=== PATIENT | male | born 1990 | race Caucasian/White ===

== ENCOUNTER 2018-04-26 21:39 | Emergency (ER) | payer SELFPAY ==
--- NOTE | 2018-04-26 21:53 | ED Physician Documentation ---
General Adult - HISTORIAN Historian: patient - HPI Stated Complaint: runny nose and fever 100 Chief Complaint: General Adult Onset: hours (6) Timing: still present Severity: mild Further Comments: yes (He states he started early this am with a runny nose and fever of 100. He did take Ibuprofen for headache. He has no cough or other complaints. He denies any sick contacts) Last known Well Code/Unknown Code: Unknown - ROS CONST: fever, recent illness EYES/ENT: none MS/SKIN/LYMPH: none NEURO/PSYCH: headache - PAST HX Past History: none Immunizations: UTD Allergies/Adverse Reactions: Allergies Allergy/AdvReac Type Severity Reaction Status Date / Time No Known Allergies Allergy Verified 04/26/18 21:55 Home Medications: Ambulatory Orders Medication Instructions Recorded Cetirizine HCl [Zyrtec] 10 mg PO DAILY 04/26/18 - SOCIAL HX Smoking History: non-smoker Alcohol Use: none Drug Use: none - FAMILY HX Family History: No - REVIEWED ASSESSMENTS Nursing Assessment Reviewed: Yes Vitals Reviewed: Yes General Adult Physical Exam - PHYSICAL EXAM GENERAL APPEARANCE: no distress EENT: eye inspection normal, ENT inspection normal, pharynx normal, no signs of dehydration, CHRIS NECK: normal inspection RESPIRATORY: no resp distress, chest non-tender, breath sounds normal CVS: reg rate & rhythm, heart sounds normal ABDOMEN: soft, normal bowel sounds, no distension BACK: normal inspection, no CVA tenderness SKIN: warm/dry, normal color EXTREMITIES: non-tender NEURO: oriented X3 Discharge Clincal Impression: Viral illness Referrals: Primary Doctor,No [Primary Care Provider] - 2 Days Comments: 1. Increase fluids 2. OTC meds as directed for fever or pain 3. Rest 4. Follow up with PCP if no improvement in 2-4days 5. Return to ER for any concerns Condition: Stable Disposition: 01 HOME, SELF-CARE Decision to Admit: NO Date of Decison to Admit: 04/26/18 Decision Time: 22:33
[2018-04-26 23:08] VITALS: BP 107/65
== END 2018-04-26 22:50 | disposition home or self-care (01) ==
LOC: ED 21:39
DX: B34.9 Viral infection, unspecified (principal)
CPT/HCPCS: 87400; 99282; 99283